=== PATIENT | female | born 1975 | race Caucasian/White ===

== ENCOUNTER → 2018-03-28 | Outpatient (CLI) | payer OTHER, MEDICAID | END | disposition home or self-care (01) | LOC: LAB 08:00 | DX: Z01.818 Encounter for other preprocedural examination (principal) | CPT/HCPCS: 84702; 86850; 86900; 86901 ==

== ENCOUNTER 2018-05-17 06:29 | Day surgery (SDC) | payer OTHER ==
[2018-05-17] MEDS ORDERED: PROPOFOL 20 ML (09:53)
[2018-05-17] MEDS ORDERED: MIDAZOLAM 1 MG/ML 2 ML INJ (09:53)
[2018-05-17] MEDS ORDERED: LIDOCAINE 2% (SDV) 5 ML INJ (09:53)
[2018-05-17] MEDS ORDERED: FENTAnyl 50 MCG/ML VIAL (09:54)
[2018-05-17] MEDS ORDERED: DEXAMETHASONE 4 MG/ML 5 ML INJ (10:01)
[2018-05-17] MEDS ORDERED: CEFAZOLIN 1 GM INJ (10:01)
[2018-05-17] MEDS ORDERED: FAMOTIDINE 20 MG INJ (10:01)
[2018-05-17] MEDS ORDERED: ONDANSETRON 4 MG INJ (10:01)
[2018-05-17] MEDS ORDERED: ACETAMINOPHEN 325 MG TAB PO (10:30)
== END 2018-05-17 12:06 | disposition home or self-care (01) ==
LOC: SDS 06:29
DX: N84.1 Polyp of cervix uteri (principal); R93.89 Abnormal findings on diagnostic imaging of other specified body structures; D25.9 Leiomyoma of uterus, unspecified
CPT/HCPCS: 58558; 84702; 84703; 86850; 86900; 86901; 88305